=== PATIENT | female | born 2000 | race Caucasian/White ===

== ENCOUNTER 2024-09-17 21:11 | Emergency (ER) | payer MEDICAID, OTHER ==
[~2024-09-17] VITALS: Ht 162.6 cm; Wt 78.5 kg
[2024-09-17 22:51] LABS: Rapid Influenza A Negative (Negative); Rapid Influenza B Negative (Negative)
[2024-09-17 22:52] LABS: COVID19 ANTIGEN SOFIA FIA NEGATIVE (NEGATIVE)
[2024-09-17] MEDS: ACETAMINOPHEN 500 MG TAB or CAP PO ONE (23:21)
--- NOTE | 2024-09-17 23:35 | ED.PDOC ---
Eye-HPI HPI Comments 24-YEAR-OLD FEMALE PRESENTS TO THE ED CHIEF COMPLAINT FEVERS. STATES SYMPTOMS STARTED 5 DAYS AGO. REPORTS SUBJECTIVE FEVERS, STIFF NECK, HEADACHE, FATIGUE, AND WEAKNESS. STATES WORST HEADACHE OF HER LIFE. TAKING [id number] MEDICATIONS WITHOUT RELIEF. DENIES RECENT TRAVEL, NAUSEA, VOMITING, DIARRHEA OR RECENT KNOWN ILL CONTACTS. Chief Complaint: Flu like Time Seen by MD: 21:29 Reviewed Notes: Nurses Notes, Medications, Allergies Allergies: Coded Allergies: Amoxicillin (Verified Allergy, Unknown, 09/17/24) Information Source: Patient Mode of Arrival: Wheelchair Past Medical History PAST MEDICAL HISTORY: Denies Surgical History: Denies all surgeries SALES NEGOTIATOR History: No Pertinent SALES NEGOTIATOR History Family History Family History: Reviewed,noncontributory to illness Social History Smoker: Non-Smoker Alcohol: Denies ETOH Use Drugs: Denies Drug Use Constitutional: reports: chills, fatigue, fever; denies: diaphoresis, malaise, sweats, weakness, others EENTM: denies: blurred vision, double vision, ear bleeding, ear discharge, ear drainage, ear pain, ear ringing, eye pain, eye redness, hearing loss, mouth pain, mouth swelling, nasal discharge, nose bleeding, nose congestion, nose pain, photophobia, tearing, throat pain, throat swelling, voice changes, others Respiratory: denies: cough, hemoptysis, orthopnea, SOB at rest, shortness of breath, SOB with excertion, stridor, wheezing, others Gastrointestinal: denies: abdomen distended, abdominal pain, blood streaked bowels, constipated, diarrhea, dysphagia, difficulty swallowing, hematemesis, melena, nausea, poor appetite, poor fluid intake, rectal bleeding, rectal pain, vomiting, others Neurological: reports: headache; denies: dizziness, fainting, left sided numbness, left sided weakness, numbness, paresthesia, pre-existing deficit, right sided numbness, right sided weakness, seizure, speech problems, tingling, tremors, weakness, others Musculoskeletal: reports: neck pain; denies: back pain, gout, joint pain, joint swelling, muscle pain, muscle stiffness, others Integumetry: denies: bruises, change in color, change in hair/nails, dryness, laceration, lesions, lumps, rash, wounds, others Allergic/Immunocompromised: denies: Difficulty Healing, Frequent Infections, Hives, Itching, others Hematologic/Lymphatic: denies: anemia, blood clots, easy bleeding, easy bruising, swollen glands, others Endocrine: denies: excessive hunger, excessive sweating, excessive thirst, excessive urination, flushing, intolerance to cold, intolerance to heat, unexplained weight gain, unexplained weight loss, others Psychiatric: denies: anxiety, bipolar disorder, depression, hopeless, panic disorder, schizophrenia, sleepless, suicidal, others Physical Exam General Appearance: No Apparent Distress, Normal HEENT: Normal ENT Inspection, Pharynx Normal, TMs Normal Neck: Limited Range of Motion, Tender Lateral Respiratory: Chest Non-Tender, Lungs Clear, No Respiratory Distress, Normal Breath Sounds Cardiovascular: No Edema, No JVD, No Murmur, No Gallop, Normal Peripheral Pulses, Regular Rate/Rhythm Breast Exam: Deferred Gastrointestinal: No Organomegaly, Non Tender, No Pulsatile Mass, Normal Bowel Sounds, Soft Genitalia: Deferred Pelvic: Deferred Rectal: Deferred Extremities: No calf tenderness, Normal capillary refill, Normal inspection, Normal range of motion, Non-tender, No pedal edema Musculoskeletal : Apperance: Normal Neurologic: Alert, invoicing machine operator II-XII nml as Tested, No Motor Deficits, Normal Affect, Normal Mood, No Sensory Deficits Cerebellar Function: Normal Reflexes: Normal Skin: Dry, Normal Color, Warm Lymphatic: No Adenopathy Was a procedure done? Was a procedure done?: No EENT DIFF Eye: N/A Sore Throat: URI Other Differential Diagnosis MENINGITIS X-Ray, Labs, Meds, VS Vital Signs Date Time Temp Pulse Resp B/P (MAP) Pulse Ox O2 Delivery O2 Flow Rate FiO2 09/18/24 00:26 99.5 09/17/24 23:21 100.5 09/17/24 23:02 109 20 98 Room Air 09/17/24 23:02 100.5 109 20 120/69 (86) 98 100.5 09/17/24 21:29 99.0 116 20 129/80 (96) 99 Lab Test 09/18/24 00:55 09/18/24 00:37 09/17/24 22:49 Range/Units White Blood Count 21.2 H 4.4-10.8 10^3/uL Red Blood Count 4.84 4.0-5.20 10^6/uL Hemoglobin 14.4 12.2-16.2 g/dL Hematocrit 42.9 36.0-46.0 % Mean Corpuscular Volume 88.6 80.0-100.0 fL Mean Corpuscular Hemoglobin 29.7 28.0-32.0 pg Mean Corpuscular Hemoglobin Concent 33.5 32.0-36.0 g/dL Red Cell Distribution Width 12.0 11.8-14.3 % Platelet Count 225 140-450 10^3/uL Mean Platelet Volume 9.6 6.9-10.8 fL Neutrophils (%) (Auto) 86.9 H 37.0-80.0 % Lymphocytes (%) (Auto) 6.1 L 10.0-50.0 % Monocytes (%) (Auto) 6.9 0.0-12.0 % Eosinophils (%) (Auto) 0.0 0.0-7.0 % Basophils (%) (Auto) 0.1 0.0-2.0 % Neutrophils # (Auto) 18.4 H 1.6-8.6 10 ^3/uL Lymphocytes # (Auto) 1.3 0.4-5.4 10 ^3/uL Monocytes # (Auto) 1.5 H 0-1.3 10 ^3/uL Eosinophils # (Auto) 0 0-0.8 10 ^3/uL Basophils # (Auto) 0 0-0.2 10 ^3/uL Nucleated Red Blood Cells 0.0 % Sodium Level 136 136-145 mmol/L Potassium Level 3.3 L 3.5-5.1 mmol/L Chloride Level 105 98-107 mmol/L Carbon Dioxide Level 20 20-31 mmol/L Anion Gap 11 5-15 Blood Urea Nitrogen 6 L 9-23 mg/dL Creatinine 0.72 0.550-1.02 mg/dL Glomerular Filtration Rate Calc 121 >90 mL/min BUN/Creatinine Ratio 8.3 L 10.0-20.0 Serum Glucose 120 H 74-106 mg/dL Lactic Acid Level 1.3 0.4-2.0 mmol/L Calcium Level 10.3 8.7-10.4 mg/dL Total Bilirubin 3.2 H 0.2-1.0 mg/dL Aspartate Amino Transferase (AST) 101 H 13-40 U/L Alanine Aminotransferase (ALT) 91 H 7-40 U/L Alkaline Phosphatase 169 H 46-116 U/L Total Protein 8.4 H 5.7-8.2 g/dL Albumin 5.2 H 3.2-4.8 g/dL Urine Color Yellow Yellow Urine Clarity Clear Clear Urine pH 6.5 5.0-9.0 Urine Specific [place] 1.015 1.001-1.035 Urine Protein Trace H Negative Urine Ketones Negative Negative Urine Blood Negative Negative /uL Urine Nitrite 2+ H Negative Urine Bilirubin Negative Negative Urine Urobilinogen Normal Negative mg/dL Urine Leukocyte Esterase 1+ Negative /uL Urine RBC 2 0 - 4 /hpf Urine Microscopic WBC 22 H 0-5 /HPF Urine Squamous Epithelial Cells Few <5 /hpf Urine Bacteria None seen None Seen /hpf Urine Mucus Few None Seen Urine Glucose Normal Normal mg/dL Influenza Type A Antigen Negative Negative Influenza Type B Antigen Negative Negative SARS-CoV-2 Antigen (Rapid) Negative NEGATIVE Current Medications Medications (Trade) Dose Ordered Sig/Garima Route Start Time Stop Time Status Last Admin Sodium Chloride 1,000 ml @ 1,000 mls/hr Q1H ONCE IV 09/17/24 23:15 09/18/24 00:14 DC 09/17/24 23:54 Acetaminophen (Tylenol Tablet Or Capsule) 500 mg ONCE ONCE PO 09/17/24 23:15 09/17/24 23:16 DC 09/17/24 23:21 X-Ray, Labs, Meds, VS Comment PATIENT GIVEN NORMAL SALINE 1000 ML FLUID BOLUS, REGLAN 5 MG IM, TYLENOL 1 G P.O., AND TORADOL 15 MG IV DOES NOTE SOME IMPROVEMENT IN THE HEADACHE NOTES MILD NECK STIFFNESS. CONTINUES WITH HEADACHE 3/10 ON PAIN SCALE PRESSURE TYPE OCCIPITAL AND SOME MILD NECK STIFFNESS. WE WILL ADMIT FOR INTRACTABLE HEADACHE AND WHITE COUNT [id number] HEAD [address] WAS NEGATIVE. CHEST X- RAY NEGATIVE FOR CARDIOPULMONARY ACUTE FINDINGS. CONSIDER BACTERIAL/VIRAL MENINGITIS DIFFERENTIAL DIAGNOSIS CONSIDER LP. Time of 1ST Reevaluation: 23:35 Reevaluation 1ST: Unchanged Time of 2ND Reevaluation: 00:36 Reevaluation 2ND: Improved Time of 3RD Reevaluation: 02:17 Reevaluation 3RD: Unchanged Patient Education/Counseling: Diagnosis, Treatment, Prognosis, Need For Follow Up Family Education/Counseling: No Family Present Departure 1 Departure Time of Disposition: 00:37 Impression: Primary Impression: Neutrophilic leukocytosis Additional Impression: Intractable headache Qualified Codes: R51.9 - Headache, unspecified Disposition: 09 ADMITTED INPATIENT Condition: Stable Discharged With: Self Critical Care Note Critical Care Time?: No Stability Stability form required: OLAF Anglin Sep 17, 2024 23:35
[2024-09-17] MEDS: SODIUM CHLORIDE 0.9% 1,000 ML IV ONE (23:54)
--- NOTE | 2024-09-18 00:02 | DVH ---
EXAM: CT HEAD WITHOUT CONTRAST INDICATION: HEADACHE/FEVER/STIFF NECK TECHNIQUE: CT of the head without intravenous contrast. Radiation Dose : 1. Head: CT Dose: CTDI volume is 53 mGy. Dose-length product is 1053 mGy*cm The dose indicators for CT are the volume Computed Tomography (CT) Dose Index (CTDIvol) and the Dose Length Product (DLP), and are measured in units of mGy and mGy-cm, respectively. These indicators are not patient dose, but values generated from the CT scanner acquisition factors. The report includes radiation exposure data for exposures received during this examination. COMPARISON: None FINDINGS: There is no evidence of acute intracranial hemorrhage, extra-axial collection, mass effect, midline s hift, herniation or hydrocephalus. The ventricles, sulci and cisterns are age appropriate. The louis-white differentiation is intact. Patchy periventricular and subcortical white matter hypoattenuation is nonspecific but may be related to small vessel ischemic disease. Mild mucosal thickening of the left maxillary sinus. The surrounding soft tissues and osseous structures are unremarkable. IMPRESSION: No acute intracranial abnormality.
[2024-09-18] MEDS: KETOROLAC TROMETH 30 MG/ML 1ML VIAL IV ONE (00:08)
[2024-09-18] MEDS: METOCLOPRAMIDE HCL 5MG/ml INJ 2ml VIAL IV ONE (00:08)
[2024-09-18] MEDS: cefTRIAXone 2GM/50ML D5W 50 ML IV ONE (00:09)
[2024-09-18 01:08] LABS: Basophils # (auto) 0 10 ^3/uL (0-0.2); Basophils % (auto) 0.1 % (0.0-2.0); Eosinophils # (auto) 0 10 ^3/uL (0-0.8); Hematocrit 42.9 % (36.0-46.0); Hemoglobin 14.4 g/dL (12.2-16.2); Lymphocytes # (auto) 1.3 10 ^3/uL (0.4-5.4); Lymphocytes % (auto) 6.1 % (10.0-50.0); Mean Corpuscular Hemoglobin 29.7 pg (28.0-32.0); Mean Corpuscular Hgb Conc. 33.5 g/dL (32.0-36.0); Mean Corpuscular Volume 88.6 fL (80.0-100.0); Monocytes # (auto) 1.5 10 ^3/uL (0-1.3); Monocytes % (auto) 6.9 % (0.0-12.0); Neutrophils # (auto) 18.4 10 ^3/uL (1.6-8.6); Neutrophils % (auto) 86.9 % (37.0-80.0); Platelet Count (auto) 225 10^3/uL (140-450); Red Blood Cells 4.84 10^6/uL (4.0-5.20); White Blood Cell 21.2 10^3/uL (4.4-10.8)
[2024-09-18 01:17] LABS: Urine Bacteria None Seen /hpf (None Seen)
[2024-09-18 01:29] LABS: Anion Gap 11 (5-15); BUN/Creatinine Ratio 8.3 (10.0-20.0); Calcium 10.3 mg/dL (8.7-10.4); Chloride 105 mmol/L (98-107)
[2024-09-18 01:30] LABS: Alanine Aminotransferase 91 U/L (7-40); Albumin 5.2 g/dL (3.2-4.8); Alkaline Phosphatase 169 U/L (46-116); Aspartate Aminotransferase 101 U/L (13-40); Bilirubin, Total 3.2 mg/dL (0.2-1.0); Blood Urea Nitrogen 6 mg/dL (9-23); Carbon Dioxide 20 mmol/L (20-31); Glucose 120 mg/dL (74-106); Potassium 3.3 mmol/L (3.5-5.1); Sodium 136 mmol/L (136-145); Total Protein 8.4 g/dL (5.7-8.2)
[2024-09-18 01:34] LABS: Urine Blood Negative /uL (Negative); Urine Clarity Clear (Clear); Urine Color Yellow (Yellow); Urine Mucus FEW (None Seen); Urine Protein, UAD TRACE (Negative); Urine Specific Gravity 1.015 (1.001-1.035); Urine Squamous Epithelial Cell FEW /hpf (<5); Urine Urobilinogen Normal (Negative); Urine WBC 22 /HPF (0-5); Urine pH 6.5 (5.0-9.0)
--- NOTE | 2024-09-18 01:43 | DVH ---
CHEST RADIOGRAPH Indication: FEVER/SOB Technique: Single frontal view of the chest was obtained Comparison: None FINDINGS: Lines and Tubes: None Lungs: Clear Pleura: No effusion. No pneumothorax. Cardiomediastinal contours: Unremarkable Bones: Unremarkable IMPRESSION: Clear lungs.
[2024-09-18] MEDS: AZITHROMYCIN 500MG/ 250ML 250 ML IV ONE (02:19)
[2024-09-18 02:21] VITALS: BP 120/76; PULSE 86; RESP 17; TEMP 98.8; O2SAT 97
[2024-09-18] MEDS ORDERED: BACDST PO (05:51)
== END 2024-09-18 06:01 | disposition home or self-care (01) ==
LOC: ER 21:11
DX: D72.828 Other elevated white blood cell count (principal); R51.9 Headache, unspecified; Z88.1 Allergy status to other antibiotic agents; Z20.822 Contact with and (suspected) exposure to COVID-19
CPT/HCPCS: 36415; 70450; 71045; 80053; 81001; 83605; 85025; 87426; 87804; 96360; 96361; 99285; J0456; J0696; J1885; J2765; J7030

== ENCOUNTER 2024-11-17 22:36 | Emergency (ER) | payer MEDICAID ==
[~2024-11-17] VITALS: Ht 160 cm; Wt 76.5 kg
[2024-11-17] MEDS: SODIUM CHLORIDE 0.9% 2,000 ML IV ONE (00:35)
[2024-11-17] MEDS: ONDANSETRON HCL 4 MG/2 ML VIAL IV ONE (23:00)
--- NOTE | 2024-11-17 23:13 | ED.PDOC ---
History of Present Illness HPI Comments 24 year old female presents to the ED with a chief complaint of dizziness onset today (11/17/24). Patient states she has been experiencing dizziness since this morning, as well as 2 syncopal episodes, nausea/vomiting, headache. Patient got out of bed this morning, experienced dizziness followed by syncopal episode, was eating breakfast when she experienced 2nd syncopal episode. She is currently 14 weeks , LMP 08/08/24, , P:0. Denies any PMHx as well as diarrhea, abdominal pain, dysuria, hematuria, chest pain, shortness of breath. No other symptoms or modifying factors present at this time. Chief Complaint: Dizziness Time Seen by MD: 22:50 Reviewed Notes: Medications, Allergies Allergies: Coded Allergies: Amoxicillin (Verified Allergy, Unknown, 09/17/24) Information Source: Patient Mode of Arrival: Ambulatory Severity: Moderate Timing: Hours Duration: Since onset Prehospital treatment: None Past Medical History PAST MEDICAL HISTORY: Denies Surgical History: Denies all surgeries DIRECTOR OF STUDENT AFFAIRS History: No Pertinent DIRECTOR OF STUDENT AFFAIRS History Family History Family History: Reviewed,noncontributory to illness Social History Smoker: Non-Smoker Alcohol: Denies ETOH Use Drugs: Denies Drug Use Lives In: Home Constitutional: denies: chills, diaphoresis, fatigue, fever, malaise, sweats, weakness, others EENTM: denies: blurred vision, double vision, ear bleeding, ear discharge, ear drainage, ear pain, ear ringing, eye pain, eye redness, hearing loss, mouth pain, mouth swelling, nasal discharge, nose bleeding, nose congestion, nose pain, photophobia, tearing, throat pain, throat swelling, voice changes, others Respiratory: denies: cough, hemoptysis, orthopnea, SOB at rest, shortness of breath, SOB with excertion, stridor, wheezing, others Cardiovascular: denies: chest pain, dizzy spells, diaphoresis, Dyspnea on exertion, edema, irregular heart beat, left arm pain, lightheadedness, palpitations, PND, syncope, others Gastrointestinal: reports: nausea, vomiting; denies: abdomen distended, abdominal pain, blood streaked bowels, constipated, diarrhea, dysphagia, difficulty swallowing, hematemesis, melena, poor appetite, poor fluid intake, rectal bleeding, rectal pain, others Genitourinary: reports: ; denies: abnormal vagina bleeding, burning, dyspareunia, dysuria, flank pain, frequency, hematuria, incontinence, pain, vagina discharge, urgency, others Neurological: reports: dizziness, headache, others (syncope); denies: fainting, left sided numbness, left sided weakness, numbness, paresthesia, pre-existing deficit, right sided numbness, right sided weakness, seizure, speech problems, tingling, tremors, weakness Musculoskeletal: denies: back pain, gout, joint pain, joint swelling, muscle pain, muscle stiffness, neck pain, others Integumetry: denies: bruises, change in color, change in hair/nails, dryness, laceration, lesions, lumps, rash, wounds, others Allergic/Immunocompromised: denies: Difficulty Healing, Frequent Infections, Hives, Itching, others Hematologic/Lymphatic: denies: anemia, blood clots, easy bleeding, easy bruising, swollen glands, others Endocrine: denies: excessive hunger, excessive sweating, excessive thirst, excessive urination, flushing, intolerance to cold, intolerance to heat, unexplained weight gain, unexplained weight loss, others Psychiatric: denies: anxiety, bipolar disorder, depression, hopeless, panic disorder, schizophrenia, sleepless, suicidal, others All Other Systems: Reviewed and Negative Physical Exam General Appearance: No Apparent Distress, Normal HEENT: Normal ENT Inspection, Pharynx Normal, TMs Normal Neck: Full Range of Motion, Non-Tender, Normal, Normal Inspection Respiratory: Chest Non-Tender, Lungs Clear, No Accessory Muscle Use, No Respiratory Distress, Normal Breath Sounds Cardiovascular: No Edema, No JVD, No Murmur, No Gallop, Normal Peripheral Pulses, Regular Rate/Rhythm Breast Exam: Deferred Gastrointestinal: No Organomegaly, Non Tender, No Pulsatile Mass, Normal Bowel Sounds, Soft Genitalia: Deferred Pelvic: Deferred Rectal: Deferred Extremities: No calf tenderness, Normal capillary refill, Normal inspection, Normal range of motion, Non-tender, No pedal edema Musculoskeletal : Apperance: Normal Neurologic: Alert, hospice registered nurse II-XII nml as Tested, No Motor Deficits, Normal Affect, Normal Mood, No Sensory Deficits Cerebellar Function: Normal Reflexes: Normal Skin: Dry, Normal Color, Warm Lymphatic: No Adenopathy Was a procedure done? Was a procedure done?: No Differential Dx Considerations may include: Dehydration, gastroenteritis, hyperemesis X-Ray, Labs, Meds, VS Vital Signs Date Time Temp Pulse Resp B/P (MAP) Pulse Ox O2 Delivery O2 Flow Rate FiO2 11/18/24 02:45 97.8 80 16 136/74 (94) 99 97.8 11/18/24 00:34 74 15 96 Room Air* 0 21 21 11/18/24 00:23 96.7 81 16 107/68 (81) 97 96.7 11/18/24 00:09 80 11/17/24 23:03 98.1 84 16 121/75 (90) 100 98.1 11/17/24 22:59 79 Lab Test 11/18/24 00:51 11/17/24 23:11 11/17/24 22:54 Range/Units Urine Color Light-yellow Yellow Urine Clarity Clear Clear Urine pH 6.0 5.0-9.0 Urine Specific [place] 1.023 1.001-1.035 Urine Protein Negative Negative Urine Ketones Trace Negative Urine Blood Negative Negative /uL Urine Nitrite Negative Negative Urine Bilirubin Negative Negative Urine Urobilinogen Normal Negative mg/dL Urine Leukocyte Esterase Negative Negative /uL Urine RBC 4 0 - 4 /hpf Urine Microscopic WBC 4 0-5 /HPF Urine Squamous Epithelial Cells Few <5 /hpf Urine Calcium Oxalate Crystals Few None Seen Urine Bacteria None seen None Seen /hpf Urine Glucose Normal Normal mg/dL White Blood Count 12.9 H 4.4-10.8 10^3/uL Red Blood Count 4.54 4.0-5.20 10^6/uL Hemoglobin 13.4 12.2-16.2 g/dL Hematocrit 39.1 36.0-46.0 % Mean Corpuscular Volume 86.2 80.0-100.0 fL Mean Corpuscular Hemoglobin 29.6 28.0-32.0 pg Mean Corpuscular Hemoglobin Concent 34.3 32.0-36.0 g/dL Red Cell Distribution Width 13.6 11.8-14.3 % Platelet Count 212 140-450 10^3/uL Mean Platelet Volume 9.5 6.9-10.8 fL Neutrophils (%) (Auto) 72.4 37.0-80.0 % Lymphocytes (%) (Auto) 21.0 10.0-50.0 % Monocytes (%) (Auto) 5.6 0.0-12.0 % Eosinophils (%) (Auto) 0.7 0.0-7.0 % Basophils (%) (Auto) 0.3 0.0-2.0 % Neutrophils # (Auto) 9.4 H 1.6-8.6 10 ^3/uL Lymphocytes # (Auto) 2.7 0.4-5.4 10 ^3/uL Monocytes # (Auto) 0.7 0-1.3 10 ^3/uL Eosinophils # (Auto) 0.1 0-0.8 10 ^3/uL Basophils # (Auto) 0 0-0.2 10 ^3/uL Nucleated Red Blood Cells 0.0 % Sodium Level 136 136-145 mmol/L Potassium Level 3.7 3.5-5.1 mmol/L Chloride Level 107 98-107 mmol/L Carbon Dioxide Level 20 20-31 mmol/L Anion Gap 9 5-15 Blood Urea Nitrogen 6 L 9-23 mg/dL Creatinine 0.49 L 0.550-1.02 mg/dL Glomerular Filtration Rate Calc 137 >90 mL/min BUN/Creatinine Ratio 12.2 10.0-20.0 Serum Glucose 104 74-106 mg/dL Calcium Level 9.6 8.7-10.4 mg/dL POC Glucose 114 H 70-106 mg/dl Current Medications Medications (Trade) Dose Ordered Sig/Garima Route Start Time Stop Time Status Last Admin Sodium Chloride 2,000 ml @ 1,000 mls/hr Q2H ONCE IV 11/17/24 23:00 11/18/24 00:59 DC 11/17/24 00:35 Sodium Chloride 2,000 ml @ 1,000 mls/hr Q2H ONCE IV 11/18/24 03:15 11/18/24 05:14 11/18/24 03:00 Time of 1ST Reevaluation: 23:20 Reevaluation 1ST: Unchanged Patient Education/Counseling: Diagnosis, Treatment, Prognosis Family Education/Counseling: No Family Present Additional Information The following tests were ordered, and results were reviewed by me: BMP, CBC, UA, EKG -x3 I discussed treatment and results with medical personnel and: Patient Comprehensive systems review obtained and negative except for what is stated in the HPI. Departure 1 Departure Time of Disposition: 04:18 (Patient with near-syncope and evaluated tolerating p.o.. Patient likely with hyperemesis gravidarum.) Impression: Primary Impression: Hyperemesis gravidarum Additional Impressions: Dehydration Generalized weakness Disposition: ADMITTED INPATIENT Admit to: Med Surg Condition: Serious Critical Care Note Critical Care Time?: No Stability Stability form required: No I personally scribed for PIEDAD LION MD ([email or web address]) on 11/17/24 at 23:13. Electronically submitted by Ileana Hardin ([email or web address]). I personally scribed for PIEDAD LION MD ([email or web address]) on 11/17/24 at 23:16. Electronically submitted by Ileana Hardin ([email or web address]). PIEDAD LION MD Nov 17, 2024 23:13
[2024-11-17 23:27] LABS: Basophils # (auto) 0 10 ^3/uL (0-0.2); Basophils % (auto) 0.3 % (0.0-2.0); Eosinophils # (auto) 0.1 10 ^3/uL (0-0.8); Eosinophils % (auto) 0.7 % (0.0-7.0); Hematocrit 39.1 % (36.0-46.0); Hemoglobin 13.4 g/dL (12.2-16.2); Lymphocytes # (auto) 2.7 10 ^3/uL (0.4-5.4); Mean Corpuscular Hemoglobin 29.6 pg (28.0-32.0); Mean Corpuscular Hgb Conc. 34.3 g/dL (32.0-36.0); Mean Corpuscular Volume 86.2 fL (80.0-100.0); Monocytes # (auto) 0.7 10 ^3/uL (0-1.3); Monocytes % (auto) 5.6 % (0.0-12.0); Neutrophils # (auto) 9.4 10 ^3/uL (1.6-8.6); Neutrophils % (auto) 72.4 % (37.0-80.0); Platelet Count (auto) 212 10^3/uL (140-450); Red Blood Cells 4.54 10^6/uL (4.0-5.20); Red Cell Distribution Width 13.6 % (11.8-14.3); White Blood Cell 12.9 10^3/uL (4.4-10.8)
[2024-11-17 23:42] LABS: Potassium 3.7 mmol/L (3.5-5.1); Sodium 136 mmol/L (136-145)
[2024-11-17 23:43] LABS: Anion Gap 9 (5-15); Calcium 9.6 mg/dL (8.7-10.4); Carbon Dioxide 20 mmol/L (20-31)
[2024-11-17 23:48] LABS: BUN/Creatinine Ratio 12.2 (10.0-20.0); Glucose 104 mg/dL (74-106)
[2024-11-17 23:49] LABS: Blood Urea Nitrogen 6 mg/dL (9-23); Chloride 107 mmol/L (98-107)
[2024-11-18 00:34] VITALS: PULSE 74; RESP 15; O2SAT 96
[2024-11-18 02:41] LABS: Urine Bacteria None Seen /hpf (None Seen)
[2024-11-18 02:56] LABS: Urine Blood Negative /uL (Negative); Urine Clarity Clear (Clear); Urine Color Light-Yellow (Yellow); Urine Protein, UAD Negative (Negative); Urine Specific Gravity 1.023 (1.001-1.035); Urine Squamous Epithelial Cell FEW /hpf (<5); Urine Urobilinogen Normal (Negative); Urine WBC 4 /HPF (0-5)
[2024-11-18] MEDS: SODIUM CHLORIDE 0.9% 2,000 ML IV ONE (03:00)
--- NOTE | 2024-11-18 05:38 | ED.PDOC ---
Departure 1 Departure Time of Disposition: 05:38 (While awaiting admission by the hospitalist patient reports she is feeling significantly better. She reports her symptoms have resolved and she would like to go home. We will discharge patient home with outpatient follow up) Impression: Primary Impression: Hyperemesis gravidarum Additional Impressions: Generalized weakness Dehydration Disposition: 01 HOME / SELF CARE / HOMELESS Condition: Stable PIEDAD LION MD Nov 18, 2024 05:38
[2024-11-18 05:44] VITALS: BP 113/68; PULSE 73; RESP 15; TEMP 98.2; O2SAT 97
--- NOTE | 2024-11-18 06:27 | ECG ---
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
--- NOTE | 2024-11-18 09:12 | ECG ---
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
== END 2024-11-18 05:55 | disposition home or self-care (01) ==
LOC: ER 22:36
DX: O21.0 Mild hyperemesis gravidarum (principal); E86.0 Dehydration; Z3A.14 14 weeks gestation of pregnancy; Z88.1 Allergy status to other antibiotic agents
CPT/HCPCS: 36415; 80048; 81001; 82947; 85025; 93005; 96360; 96361; 99285; J7030; 82962

== ENCOUNTER 2024-11-25 12:45 | Emergency (ER) | payer MEDICAID ==
[~2024-11-25] VITALS: Ht 175.3 cm; Wt 79.2 kg
--- NOTE | 2024-11-25 14:07 | DVH ---
Procedure: US OB ULTRASOUND COMP LESS 14WKS 11/25/2024 01:22 PM Indication: VIABILITY Comparison: None Technique: Real-time grayscale and color images were obtained utilizing transabdominal and transvagin al probes with spectral analysis performed. FINDINGS: UTERUS: Anteverted, measuring 12.1 cm in length. Homogeneous myometrium without a discrete lesion. An intrauterine gestational sac is seen with mean sac diameter of 7 cm containing a pole measur ing 5.7 cm in crown-rump length corresponding 12 weeks and 2 days gestation. A yolk sac is seen. No s ubchorionic hemorrhage. CHACHO by ultrasound is 06/07/2025. heart activity is recorded at 152 armin ts per minute. RIGH OVARY: Not identified. LEFT OVARY: Not identified. CUL-DE-SAC: No significant fluid noted. OTHER: None. IMPRESSION: 1. Single living intrauterine with estimated ultrasound age of 12 weeks and 2 days based on CRL.
[2024-11-25 14:36] VITALS: BP 122/69; PULSE 78; RESP 18; TEMP 97.8; O2SAT 99
--- NOTE | 2024-11-25 14:41 | ED.PDOC ---
DIGITAL STRATEGIST HPI Comments A 24 YEAR OLD FEMALE PRESENTS TO THE ED WITH CHIEF COMPLAINT OF PELVIC PAIN AND CONCERN OF . PATIENT REPORTS THAT SHE VISITED HER OBGYN FOR THE FIRST TIME TODAY AND WAS TOLD THERE WAS NO HEART RATE AT 12 WEEKS . PATIENT RELAYS THAT SHE WAS WORRIED AND ADVISED TO COME TO THE ED FOR FURTHER EVALUATION. PATIENT STATES SHE HAS ALSO HAD SOME PELVIC PAIN FOR THE PAST 3 WEEKS. PATIENT DENIES ANY VAGINAL BLEEDING, DYSURIA, HEMATURIA, VAGINAL DISCHARGE, N/V, OR ABDOMINAL PAIN. NO OTHER SYMPTOMS REPORTED AT THIS TIME OF CARE. Chief Complaint: Time Seen by MD: 14:36 Reviewed Notes: Nurses Notes, Medications, Allergies Allergies: Coded Allergies: Amoxicillin (Verified Allergy, Unknown, 09/17/24) Information Source: Patient Mode of Arrival: Ambulatory Timing: Weeks Prehospital treatment: None Severity: Mild, Moderate Vaginal Discharge: None Vaginal Lesions: None Sexual Activity: Last Consensual [place]: Unknown Control: None History of: Current Associated Signs and Symptoms: Cramping Past Medical History PAST MEDICAL HISTORY: Denies Surgical History: Denies all surgeries VAT WASHER History: No Pertinent VAT WASHER History Family History Family History: Reviewed,noncontributory to illness Social History Smoker: Non-Smoker Alcohol: Denies ETOH Use Drugs: Denies Drug Use Lives In: Home Constitutional: denies: chills, diaphoresis, fatigue, fever, malaise, sweats, weakness, others EENTM: denies: blurred vision, double vision, ear bleeding, ear discharge, ear drainage, ear pain, ear ringing, eye pain, eye redness, hearing loss, mouth pain, mouth swelling, nasal discharge, nose bleeding, nose congestion, nose pain, photophobia, tearing, throat pain, throat swelling, voice changes, others Respiratory: denies: cough, hemoptysis, orthopnea, SOB at rest, shortness of breath, SOB with excertion, stridor, wheezing, others Cardiovascular: denies: chest pain, dizzy spells, diaphoresis, Dyspnea on exertion, edema, irregular heart beat, left arm pain, lightheadedness, palpitations, PND, syncope, others Gastrointestinal: denies: abdomen distended, abdominal pain, blood streaked bowels, constipated, diarrhea, dysphagia, difficulty swallowing, hematemesis, melena, nausea, poor appetite, poor fluid intake, rectal bleeding, rectal pain, vomiting, others Genitourinary: reports: pain (PELVIC ), ; denies: abnormal vagina bleeding, burning, dyspareunia, dysuria, flank pain, frequency, hematuria, incontinence, vagina discharge, urgency, others Neurological: denies: dizziness, fainting, headache, left sided numbness, left sided weakness, numbness, paresthesia, pre-existing deficit, right sided numbness, right sided weakness, seizure, speech problems, tingling, tremors, weakness, others Musculoskeletal: reports: others (RT SIDED PELVIC PAIN); denies: back pain, gout, joint pain, joint swelling, muscle pain, muscle stiffness, neck pain Integumetry: denies: bruises, change in color, change in hair/nails, dryness, laceration, lesions, lumps, rash, wounds, others Allergic/Immunocompromised: denies: Difficulty Healing, Frequent Infections, Hives, Itching, others Hematologic/Lymphatic: denies: anemia, blood clots, easy bleeding, easy bruising, swollen glands, others Endocrine: denies: excessive hunger, excessive sweating, excessive thirst, excessive urination, flushing, intolerance to cold, intolerance to heat, unexplained weight gain, unexplained weight loss, others Psychiatric: denies: anxiety, bipolar disorder, depression, hopeless, panic disorder, schizophrenia, sleepless, suicidal, others All Other Systems: Reviewed and Negative Physical Exam General Appearance: No Apparent Distress, Normal HEENT: Normal ENT Inspection, PERRL/EOMI Neck: Full Range of Motion, Non-Tender, Normal, Normal Inspection Respiratory: Chest Non-Tender, Lungs Clear, No Accessory Muscle Use, No Respiratory Distress, Normal Breath Sounds Cardiovascular: No Edema, No JVD, No Murmur, No Gallop, Normal Peripheral Pulses, Regular Rate/Rhythm Breast Exam: Deferred Gastrointestinal: No Organomegaly, Non Tender, No Pulsatile Mass, Normal Bowel Sounds, Soft Genitalia: Deferred Pelvic: Normal External Exam, Tender Adnexa (MILD TENDERNESS PELVIC, NO GUARDING AND REBOUND TENDERNESS. ) Rectal: Deferred Extremities: No calf tenderness, Normal capillary refill, Normal inspection, Normal range of motion, Non-tender, No pedal edema Musculoskeletal : Apperance: Normal Neurologic: Alert, senior painter II-XII nml as Tested, No Motor Deficits, Normal Affect, Normal Mood, No Sensory Deficits Cerebellar Function: Normal Reflexes: Normal Skin: Dry, Normal Color, Warm Peripheral Pulses: 2+ carotid (R), 2+ carotid (L) Lymphatic: No Adenopathy Was a procedure done? Was a procedure done?: No Differential Diagnosis (VAT WASHER) Vaginal Bleeding: - Threatened, Ectopic , UTI, Vaginitis Vaginal Discharge: UTI Comments PELVIC PAIN X-Ray, Labs, Meds, VS Vital Signs Date Time Temp Pulse Resp B/P (MAP) Pulse Ox O2 Delivery O2 Flow Rate FiO2 11/25/24 14:36 78 18 99 Room Air 11/25/24 14:36 97.8 78 18 122/69 (86) 99 97.8 11/25/24 13:05 98.2 84 20 132/75 (94) 98 98.2 Lab Test 11/25/24 13:23 Range/Units Beta HCG, Quantitative 23819.8 H 1.5-4.2 mIU/mL OB US: FINDINGS: UTERUS: Anteverted, measuring 12.1 cm in length. Homogeneous myometrium without a discrete lesion. An intrauterine gestational sac is seen with mean sac diameter of 7 cm containing a pole measuring 5.7 cm in crown-rump length corresponding 12 weeks and 2 days gestation. A yolk sac is seen. No subchorionic hemorrhage. CHACHO by ultrasound is 06/07/2025. heart activity is recorded at 152 beats per minute. RIGH OVARY: Not identified. LEFT OVARY: Not identified. CUL-DE-SAC: No significant fluid noted. OTHER: None. IMPRESSION: 1. Single living intrauterine with estimated ultrasound age of 12 weeks and 2 days based on CRL. X-Ray, Labs, Meds, VS Comment COURSE: EXTERNAL MEDICAL RECORDS REVIEWED: [NONE] INDEPENDENT HISTORIANS: [NONE] SOCIAL DETERMINANTS OF HEALTH: [NONE] LABS ORDERED: BETA HCG REVIEWED AND INTERPRETED RESULTS: OB US IMAGING ORDERED: NONE TREATMENTS ORDERED: OB US PROCEDURES PERFORMED: NONE CRITICAL CARE TIME: NONE I HAVE DISCUSSED THE PATIENT WITH THE ATTENDING PHYSICIAN DR. FAITH] AND HE AGREES WITH THE PATIENT'S PLAN OF CARE AND DISPOSITION. BASED ON HISTORY OF PRESENT ILLNESS, AND PHYSICAL EXAM, PATIENT WILL BE DISCHARGED HOME. DISCUSSED PLAN FOR DISCHARGE HOME. SHARED DECISION MAKING: DISCUSSED WITH PATIENT THAT THEIR WORKUP WAS NORMAL. PATIENT INSTRUCTED TO FOLLOW UP WITH PRIMARY CARE PROVIDER IN 1-2 DAYS FOR RE- EVALUATION OF SYMPTOMS. PATIENT VERBALIZES UNDERSTANDING TO RETURN TO ED FOR NEW OR WORSENING SYMPTOMS OR IF FOLLOW UP WITH PCP CANNOT BE OBTAINED. PATIENT FEELS COMFORTABLE GOING HOME AT THIS TIME. ALL QUESTIONS ADDRESSED AT TIME OF DISCHARGE. Images Reviewed?: Images reviewed and evaluated by me Time of 1ST Reevaluation: 14:40 Reevaluation 1ST: Improved Patient Education/Counseling: Diagnosis, Treatment, Need For Follow Up Family Education/Counseling: Diagnosis, Treatment, No Family Present Medical Screening: No EMC Exist At This Time Departure 1 Departure Time of Disposition: 15:07 Impression: Primary Impression: Pelvic pain Additional Impression: First trimester Disposition: 01 HOME / SELF CARE / HOMELESS Condition: Stable Additional Instructions: FOLLOW-UP WITH PCP IN 1 TO 2 DAYS. TAKE MEDICATIONS PRESCRIBED. RETURN TO ED FOR ANY NEW OR WORSENING SYMPTOMS. Discharged With: Self Critical Care Note Critical Care Time?: No Stability Stability form required: No Heart Score Heart Score: Heart Score Response (Comments) Value History N/A 0 EKG N/A 0 Age N/A 0 Risk Factors N/A 0 Troponin N/A 0 Total 0 I personally scribed for SHELLI TAVERAS ([email or web address]) on 11/25/24 at 14:41. Electronically submitted by Ghulam Bruner ([email or web address]). SHELLI TAVERAS Nov 25, 2024 14:41
== END 2024-11-25 14:37 | disposition home or self-care (01) ==
LOC: ER 12:45
DX: O26.891 Other specified pregnancy related conditions, first trimester (principal); R10.2 Pelvic and perineal pain; Z3A.12 12 weeks gestation of pregnancy; Z88.0 Allergy status to penicillin
CPT/HCPCS: 36415; 76801; 84702